=== PATIENT | female | born 1975 | race Caucasian/White ===

== ENCOUNTER 2020-05-28 07:47 | Outpatient (CLI) | payer OTHER, SELFPAY ==
--- NOTE | 2020-05-28 07:52 | MM_ITS ---
WS: [id number] BILATERAL SCREENING MAMMOGRAM WITH RAVI DISPLACEMENT VIEWS. CAD PERFORMED. HISTORY: SCREENING COMPARISON: 07/11/2017 and 06/14/2013 Bilateral craniocaudal and mediolateral like views are performed. Ravi displacement views in CC and MLO projection also performed. Breasts composition: The breasts are heterogeneously dense, which may obscure small masses. Prepecto ral implants are intact. No capsular contraction. No suspicious mass or calcification. MM/[place] [id number] IMPRESSION: BI-RADS: 2-Benign FOLLOW-UP: 1 Year Follow-up
== END 2020-05-28 07:48 | disposition home or self-care (01) ==
LOC: RADSHAW 07:51
PROVIDERS: PCP Family Medicine; Visit Provider Family Medicine
DX: Z12.31 Encounter for screening mammogram for malignant neoplasm of breast (principal)
CPT/HCPCS: 77067

== ENCOUNTER 2020-07-15 09:55 | Outpatient (CLI) | payer OTHER, SELFPAY ==
--- NOTE | 2020-07-15 10:02 | XR_ITS ---
WS: [id number] Exam: XR chest 2V* [id number] Date/Time of Exam: 07/15/2020 10:15 AM Reason For Exam: PNEUMONIA DUE TO SARS ASSOCIATED W/CORONAVIRUS Findings: The lungs are clear and fully expanded. Costophrenic angles are sharp. No infiltrates. Bronchovascula r relief appears normal. Cardiac silhouette is unremarkable. Bony elements are intact. Hardware parti ally visualized in the lower cervical spine. XR/XR chest 2V* [id number] IMPRESSION: Unremarkable chest radiograph.
== END 2020-07-15 09:56 | disposition home or self-care (01) ==
LOC: RAD 09:59
PROVIDERS: PCP Family Medicine; Visit Provider Family Medicine
DX: J12.81 Pneumonia due to SARS-associated coronavirus (principal)
CPT/HCPCS: 71046

== ENCOUNTER → 2022-08-30 08:25 | Outpatient (BNVA) | payer OTHER, SELFPAY | PROVIDERS: PCP Family Medicine; Visit Provider Family Medicine | DX: Z00.00 Encounter for general adult medical examination without abnormal findings (principal); M25.50 Pain in unspecified joint | CPT/HCPCS: 80053; 80061; 85025; 85651; 86140; 86160; 86162; 86235; 86255; 86376; 86431 ==

== ENCOUNTER 2022-09-01 12:35 | Outpatient (CLI) | payer OTHER, SELFPAY ==
--- NOTE | 2022-09-01 12:55 | XRR_ITS ---
PROCEDURE INFORMATION: Exam: XR Left Hand Exam date and time: 09/01/2022 1:01 PM Age: 46 years old Clinical indication: Condition or disease; Arthritis; Rheumatoid; Hand; Bilateral TECHNIQUE: Imaging protocol: Radiologic exam of the Left hand. Views: 3 or more views. COMPARISON: No relevant prior studies available. FINDINGS: Bones/joints: Osseous structures are intact. No fracture or malalignment. Visualized joint surfaces are preserved. No erosions or other evidence of inflammatory arthropathy. Soft tissues: Unremarkable. XR/XR hand LT 2V [id number] IMPRESSION: Negative exam. No acute bony abnormalities.
--- NOTE | 2022-09-01 12:55 | XRR_ITS ---
PROCEDURE INFORMATION: Exam: XR Right Hand Exam date and time: 09/01/2022 1:01 PM Age: 46 years old Clinical indication: Condition or disease; Arthritis; Rheumatoid; Hand; Bilateral TECHNIQUE: Imaging protocol: Radiologic exam of the Right hand. Views: 1 or 2 views. COMPARISON: No relevant prior studies available. FINDINGS: Bones/joints: Normal. No fracture or malalignment. Joint surfaces preserved. No erosions or other evidence of inflammatory arthropathy. Soft tissues: Normal. XR/XR hand RT 2V [id number] IMPRESSION: Normal examination right hand.
== END 2022-09-01 12:36 | disposition home or self-care (01) ==
PROVIDERS: PCP Family Medicine; Visit Provider Family Medicine
DX: M06.842 Other specified rheumatoid arthritis, left hand (principal); M06.841 Other specified rheumatoid arthritis, right hand
CPT/HCPCS: 73120

== ENCOUNTER 2023-12-06 07:44 | Outpatient (CLI) | payer OTHER, SELFPAY ==
--- NOTE | 2023-12-06 07:56 | MM_ITS ---
WS: [id number] BILATERAL 3D TOMOSYNTHESIS DIGITAL SCREENING MAMMOGRAPHY WITH CAD CLINICAL INFORMATION: SCREENING HISTORY: Screening mammogram. No current complaints. COMPARISON: 2020 TECHNIQUE: Bilateral CC and MLO views. FINDINGS: Stable intact prepectoral implants. The breasts are composed of heterogeneous fibroglandular density tissue, which can limit the detectio n of small underlying mass lesions. No suspicious mass, asymmetry, calcifications, or architectural d istortion. No evidence of malignancy. IMPRESSION: MM/[place] [id number] BI-RADS: 2-Benign FOLLOW UP: 1 Year Follow-up Recommend return to annual screening mammography.
== END 2023-12-06 07:45 | disposition home or self-care (01) ==
LOC: RAD 07:44
PROVIDERS: PCP Family Medicine; Visit Provider Electrodiagnostic Medicine
DX: Z12.31 Encounter for screening mammogram for malignant neoplasm of breast (principal)
CPT/HCPCS: 77063; 77067